=== PATIENT | female | born 1955 | race Caucasian/White ===

== ENCOUNTER 2017-01-24 21:17 | Emergency (ER) | payer MEDICAID ==
[~2017-01-24] VITALS: Ht 165.1 cm; Wt 77.6 kg
[~2017-01-24 21:17] MED LIST: CETI10CH3 PO; HYDR-2551 PO; METO-158 PO; OMEP20TA44 PO
[2017-01-24 22:27] LABS: Basophils # (auto) 0 uL; Basophils % (auto) 0.6 % (0.0-2.0); Eosinophils # (auto) 0.1 uL; Eosinophils % (auto) 1.6 % (0.0-7.0); Hematocrit 37.9 % (36.0-46.0); Hemoglobin 12.9 g/dL (12.2-16.2); Lymphocytes # (auto) 1.7 uL; Lymphocytes % (auto) 22.5 % (10.0-50.0); Mean Corpuscular Hemoglobin 29.2 pg (28.0-32.0); Mean Corpuscular Volume 85.9 fL (80.0-100.0); Mean Platelet Volume 7.3 fL (6.9-10.8); Monocytes # (auto) 0.4 uL; Monocytes % (auto) 4.9 % (0.0-12.0); Neutrophils # (auto) 5.2 uL; Neutrophils % (auto) 70.4 % (37.0-80.0); Platelet Count (auto) 270 10^3/uL (140-450); Red Cell Distribution Width 14.4 % (11.8-14.3); White Blood Cell 7.4 10^3/uL (4.4-10.8)
[2017-01-24 22:36] LABS: Albumin 4.3 g/dL (3.4-5.0); BUN/Creatinine Ratio 23.7; Calcium 8.9 mg/dL (8.5-10.1)
[2017-01-24 22:38] LABS: Bilirubin, Total 0.4 mg/dL (0.2-1.0); Total Protein 7.6 g/dL (6.4-8.2)
[2017-01-24 22:51] LABS: Potassium 2.9 mmol/L (3.5-5.1)
[2017-01-25] MEDS ORDERED: POTASSIUM CHL 20 Meq TABLET PO ONE (04:15)
[2017-01-25] MEDS ORDERED: KETOROLAC TROMETH 60MG/2ML VIAL IM ONE (05:00)
[2017-01-25 08:21] VITALS: BP 142/102
== END 2017-01-25 08:50 | disposition home or self-care (01) ==
LOC: ER 21:24
DX: M65.342 Trigger finger, left ring finger (principal); E78.5 Hyperlipidemia, unspecified; I10 Essential (primary) hypertension; E87.6 Hypokalemia; Z79.899 Other long term (current) drug therapy
CPT/HCPCS: 36415; 80053; 84132; 85025; 85379; 93005; 93971; 96372; 99285; J1885

== ENCOUNTER 2024-05-23 16:09 | Emergency (ER) | payer MEDICARE, MEDICAID ==
[~2024-05-23] VITALS: Ht 165.1 cm; Wt 76.8 kg
[2024-05-23 16:14] VITALS: BP 130/82; PULSE 102; RESP 16; O2SAT 100
== END 2024-05-23 22:59 | disposition left against medical advice (07) ==
LOC: EDUNIT# 16:09 → EDBD 16:09 → ER 16:16
DX: K59.00 Constipation, unspecified (principal); R10.30 Lower abdominal pain, unspecified; Z53.21 Procedure and treatment not carried out due to patient leaving prior to being seen by health care provider